=== PATIENT | male | born 1985 | race Caucasian/White ===

== ENCOUNTER → 2016-10-15 | Day surgery (SDC) | payer BC ==
[~2016-10-15] VITALS: Ht 175.3 cm; Wt 90.7 kg
[2016-10-15] VITALS (10 sets, daily range): BP systolic 115–141; BP diastolic 66–97
[~2016-10-15] MED LIST: ASMANEX220 MC2 INH; Alfentanil 2ml Inj ONE; Atropine Inj 1mg/10ml Syr IV PRN; CVS COUGH PO; D5 1/2NS 1,000 ML IV SCH; DELSYM30 MG/5 M1 PO; Dexamethasone 4mg/ml vial ONE; DiphenhydrAMINE 50mg/ml Inj IVP PRN; EPINEPHrine 1mg/1ml Amp ONE; HYDROmorphone 1mg/ml Carpuject SUBQ PRN; Hydromorphone 0.5mg/0.5ml inj IVP PRN; Ketorolac 30mg Inj IV PRN; Ketorolac 60mg Inj IV PRN; LORazepam Inj 2mg/ml 1ml IV PRN; LR 1000ml 1,000 ML IVLG SCH; LR 1000ml ONE; Labetalol 5mg/ml 20ml vial IV PRN; Lidocaine 1% MPF 10mg/ml 5ml ONE; MUCINEX600 MG PO; Meperidine 25mg/ml Inj IV PRN; Metoclopramide 10mg/2ml Inj IVP PRN; Midazolam 2mg/2ml Inj IVP PRN; NS Irrig 1000ml ONE; Norco 5mg/325mg tab ORAL PRN; Norco 7.5mg/325mg tab ORAL PRN; Oxycodone/Acetaminophen 5-325 ORAL PRN; PROAIR HFA8.5 GM INH; Propofol 10mg/ml 20ml IV ONE; Ropivacaine 5mg/ml Vial 20ml INJ ONE; SUPHEDRINE PE10 MG PO; Sterile Water Irrig 1000ml IRRIG ONE; Tylenol #3 tab (300mg/30mg) ORAL PRN; [UNRECOGNIZED DRUG - OTHER] PO; fentaNYL 100 mcg/2 mL IV ONE; fentaNYL 100 mcg/2 mL IV PRN
--- NOTE | 2016-10-15 09:20 | Pre-Procedure Note/Attestation ---
Pre-Procedure Note/Attestation Complete Prior to Procedure Planned Procedure: left Procedure Narrative: Left knee arthroscopy with ACL allograft reconstruction Indications for Procedure Pre-Operative Diagnosis: Left knee ACL tear Attestation I attest that I discussed the nature of the procedure; its benefits; risks and complications; and alternatives (and the risks and benefits of such alternatives ), prior to the procedure, with the patient (or the patient's legal inside technical sales representative). I attest that, if there was a reasonable possibility of needing a blood transfusion, the patient (or the patient's legal inside technical sales representative) was given the [facility] standardized written summary, pursuant to the Rodrigo Be[place] Blood Safety Act ([place] Health and Safety Code # 1645, as amended). I attest that I re-evaluated the patient just prior to the surgery and that there has been no change in the patient's H&P, except as documented below: KATEY PRUITT Oct 15, 2016 09:20
--- NOTE | 2016-10-15 10:36 | Anethesia Preoperative Eval ---
Anesthesia Pre-op PMH/ROS General Date of Evaluation: Oct 15, 2016 Time of Evaluation: 09:16 Anesthesiologist: Shireen ASA Score: ASA 2 Mallampati Score Class I : Soft palate, uvula, fauces, pillars visible Class II: Soft palate, uvula, fauces visible Class III: Soft palate, base of uvula visible Class IV: Only hard plate visible Mallampati Classification: Class II Surgeon: Minesh Anesthesia History: none Family History: no anesthesia problems Allergies: Coded Allergies: No Known Allergies (Unverified , 10/14/16) Medications: see eMAR Past Medical History Pulmonary: Reports: asthma - Bronchitis Gastrointestinal/Genitourinary: Reports: GERD Other: obesity - BMI 31 PSxH Narrative: IHR Anesthesia Pre-op Phys. Exam Physician Exam Last Vital Signs Date Time Temp Pulse Resp B/P Pulse Ox O2 Delivery O2 Flow Rate FiO2 10/15/16 08:18 98.6 68 18 115/82 98 Room Air Constitutional: NAD Neurologic: CN 2-12 intact Cardiovascular: RRR Respiratory: CTA Gastrointestinal: S/NT/ND Airway Exam Mallampati Score: Class II MO: full ROM: full Teeth: intact Anesthesia Pre-op A/P Risk Assessment & Plan Assessment: ASA 2 Plan: GA, BIS, L Femoral and L Adductor Block Status Change Before Surgery: No Pre-Antibiotics Dru Grams Ancef IV Given Within 1 Hr of Incision: Yes Time Given: 09:31 Navjot Iyer MD Oct 15, 2016 10:36
--- NOTE | 2016-10-15 10:38 | Immediate Post-Op Evaluation ---
Immediate Post-Op Evalulation Immediate Post-Op Evalulation Procedure: L ACL Repair Date of Evaluation: Oct 15, 2016 Time of Evaluation: 11:30 IV Fluids: 1000LR Blood Products: 0 Estimated Blood Loss: 15 Urinary Output: 0 Blood Pressure Systolic: 130 Blood Pressure Diastolic: 81 Pulse Rate: 78 Respiratory Rate: 16 O2 Sat by Pulse Oximetry: 100 Temperature (Fahrenheit): 97.8 Pain Score (1-10): 2 Nausea: No Vomiting: No Complications 0 Patient Status: awake, reacts, patent, none Hydration Status: adequate Dru Grams Ancef IV Given Within 1 Hr of Incision: Yes Time Given: 09:31 Navjot Iyer MD Oct 15, 2016 10:38
--- NOTE | 2016-10-15 10:39 | 48 Hour Post Anesthesia Eval ---
Post Anesthesia Evaluation Procedure: L ACL Repair Date of Evaluation: Oct 15, 2016 Time of Evaluation: 13:42 Blood Pressure Systolic: 128 0: 67 Pulse Rate: 73 Respiratory Rate: 18 Temperature (Fahrenheit): 98.3 O2 Sat by Pulse Oximetry: 99 Airway: patent Nausea: No Vomiting: No Pain Intensity: 2 Hydration Status: adequate Cardiopulmonary Status: Stable Mental Status/LOC: patient returned to baseline Follow-up Care/Observations: 0 Post-Anesthesia Complications: 0 Follow-up care needed: ready to discharge Navjot Iyer MD Oct 15, 2016 10:39
--- NOTE | 2016-10-15 17:08 | Operative Note - Dictated ---
DATE OF OPERATION: 10/15/2016 SURGEON: Julien Edge M.D. FRANCHISE SALES REPRESENTATIVE: None. ANESTHESIA: Regional plus general plus local. ANESTHESIOLOGIST: Navjot Iyer M.D. COMPLICATIONS: None. ANTIBIOTICS: Ancef. PREOPERATIVE DIAGNOSES: Left knee, 1. Anterior cruciate ligament rupture. Lateral meniscus tear. POSTOPERATIVE DIAGNOSES: Left knee, 1. Anterior cruciate ligament rupture. 2. Lateral meniscus tear. PROCEDURE PERFORMED: Left knee arthroscopy with: 1. Arthroscopically assisted anterior tibialis allograft anterior cruciate ligament reconstruction using an 11 mm Aper-Fix femoral device, 12 x 30 mm Mishel interference tibial screw fixation. 2. Lateral meniscus repair using CrossFix suture repair. BACKGROUND: The patient sustained an ACL rupture and associated lateral meniscus tear. All risks, benefits, alternatives, and surgical intervention were discussed in great detail. Risks included, but were not limited to, bleeding, infection, neurovascular injury, need for additional surgical intervention, failure of pain relief, arthrofibrosis, complications of anesthesia, blood clots, stroke, heart attack, and potentially . He understood these risks, amongst others, and consent was signed. PROCEDURE IN DETAIL: The patient was brought into the operating room and placed supine on the operating room table. The left knee was correctly verified for surgical site, and prepped and draped in standard sterile fashion. Dr. Iyer performed regional anesthetic. General anesthesia was introduced. Two grams of Ancef were given. Examination under anesthesia revealed 2+ pivot shift and 2+ Meghana compared to trace and physiologic on the contralateral side. Anterolateral and anteromedial portals were marked and injected with 20 mL of 0.25% Marcaine with epinephrine. A diagnostic arthroscopy was then undertaken. It revealed the followin. Normal suprapatellar pouch. 2. Normal patellofemoral articulation. 3. Normal medial gutter. 4. Normal lateral gutter. 5. Normal lateral compartment. 6. Posterior horn lateral meniscus tear (undersurface). 7. Ruptured ACL with empty notch sign. 8. Normal PCL. 9. Normal medial meniscus. 10. Normal medial compartment. In the lateral compartment, a probe was used to test the lateral meniscus tear. It appeared to be attempting to be healing on its own. It was only present on the undersurface. It did not go through the superior aspect. In order to augment healing and keep the edges in close proximity, a stitch was placed using a CrossFix into the lateral meniscus. It was well fixated and tested with a probe after repair. Attention was then turned to the notch. Using a radiofrequency device, the [id number] position was clearly identified. The footprint was identified as well. An ACL guide was used to place a pin with appropriate orientation. An 11 mm wide tunnel was drilled, as determined by the allograft, which was prepared on the back table. Using an [id number] positioner to maintain a 1.5 mm posterior cortical border in the femur, femoral drill was utilized to approximately 32 mm (x 11 mm side). Fluoroscopy confirmed no cortical embarrassment in neither bone tunnel. All debris was evacuated. A graft, which was placed on 15 pounds of tension for 15 minutes on the back table, was then loaded onto the Aper-Fix device. It was deployed under direct visualization. There was no rubbing or impingement on either condyle throughout a full range of motion. In full extension, there was no impingement in the notch. With appropriate tension, the tibial interference screw fixation was secured. There was excellent graft isometry and anatomic positioning. All fluid and debris were evacuated. A 10 mL of 0.25% Marcaine with epinephrine were injected. The wounds were copiously irrigated and reapproximated using 4-0 Monocryl in subcuticular fashion. Steri-Strips were used over Mastisol. A dry sterile dressing was applied. A compressive stocking was fitted. There were no complications. I attest that I performed the entire operation, and he was transferred to recovery in good condition. Julien Edge M.D. ([facility]) DR: CHANDANA JOB#: [id number] CC:
== END | disposition home or self-care (01) ==
LOC: SUR 07:40
DX: S83.512A Sprain of anterior cruciate ligament of left knee, initial encounter (principal); S83.282A Other tear of lateral meniscus, current injury, left knee, initial encounter; X58.XXXA Exposure to other specified factors, initial encounter; Y92.89 Other specified places as the place of occurrence of the external cause; Y99.9 Unspecified external cause status; J45.909 Unspecified asthma, uncomplicated; K21.9 Gastro-esophageal reflux disease without esophagitis; E66.9 Obesity, unspecified; Z68.31 Body mass index [BMI] 31.0-31.9, adult
CPT/HCPCS: 29882; 29888; 87070; 87075; 87205; 97161; J0171; J0690; J1100; J2250; J2405; J2704; J2795; J3010; J3490; J7120; 94003; 94150